=== PATIENT | female | born 1970 | race Caucasian/White ===

== ENCOUNTER 2021-08-20 19:42 | Emergency (ER) | payer OTHER ==
[~2021-08-20] VITALS: Ht 160 cm; Wt 49.9 kg
[2021-08-20 19:42] VITALS: BP_SYST 102
--- NOTE | 2021-08-20 20:00 | NUR ---
Patient to bed 8 for evaluation and treatment
--- NOTE | 2021-08-20 20:02 | NUR ---
DR GOOD IN ROOM FOR EXAM.
[2021-08-20 20:29] LABS: BASOPHILS % (AUTO) 0.4 % (0.0-2.0); EOSINOPHILS # (AUTO) 0.2 K/uL (0.0-0.4); EOSINOPHILS % (AUTO) 1.5 % (0.0-4.0); HEMOGLOBIN 12.6 g/dL (12.0-16.0); LYMPHOCYTES # (AUTO) 2.1 K/uL (1.0-5.5); LYMPHOCYTES % (AUTO) 20.1 % (20.5-51.5); MEAN CORPUSCULAR HEMOGLOBIN 31 pg (27-31); MEAN CORPUSCULAR HGB CONC 34 % (32-36); MEAN CORPUSCULAR VOLUME 91 fL (79.0-98.0); MONOCYTES # (AUTO) 0.8 K/uL (0.0-1.0); MONOCYTES % (AUTO) 7.7 % (1.7-9.3); NEUTROPHILS # (AUTO) 7.5 K/uL (1.8-7.7); NEUTROPHILS % (AUTO) 70.3 % (40.0-70.0); PLATELET COUNT (AUTO) 280 K/uL (130-430); RED BLOOD CELL COUNT(AUTO) 4.06 MIL/uL (4.2-6.2); RED CELL DISTRIBUTION WIDTH 13.4 % (9.0-15.0); WHITE BLOOD COUNT (AUTO) 10.6 K/uL (4.8-10.8)
--- NOTE | 2021-08-20 20:33 | NUR ---
PT COMES INTO ER FROM [facility] FOR MEDICAL CLEARANCE FOR FAILURE TO THRIVE. PER REPORT FROM MARIANNA BAHENA AT [facility], PT HAS A BED WAITING FOR HER AT [facility] PER LATISHA BAHENA ONCE CLEARED. STATES PT HAS STOPPED TAKING HER SEROQUEL FOR 1 WEEK, NOT EATING AND VERY WITHDRAWN. PT CURRENTLY AAOX3, IN NAD. RESP EVEN AND UNALBORED, ON RA @98%, DENIES ANY PAIN OR SOB. ABLE TO FOLLOW SIMPLE COMMANDS, BUT DISTRACTED AND NEEDS RE-ORIENTATION. SAFTEY PRECAUTIONS IN PLACE, WILL CONT TO MONITOR.
[2021-08-20 20:41] LABS: ANION GAP 7 (5-15); CALCIUM 9.4 mg/dL (8.4-11.0); CHLORIDE 99 mmol/L (98-107); CREATININE 0.89 mg/dL (0.55-1.30); GLUCOSE 78 mg/dL (70-99); POTASSIUM 3.1 mmol/L (3.5-5.1); SODIUM SERUM 138 mmol/L (136-145); UREA NITROGEN, BLOOD 33 mg/dL (8-21)
[2021-08-20 20:42] LABS: GFR AFRICAN AMERICAN 86 mL/min (>90)
--- NOTE | 2021-08-20 20:42 | NUR ---
PT DENIES ANY SI/HI, DENIES VISUAL OR AUDIAL HALLUCINATIONS.
[2021-08-20 20:47] LABS: ALANINE AMINOTRANSFERASE 34 U/L (12-78); ALBUMIN 3.8 g/dL (3.4-4.8); ASPARTATE AMINOTRANSFERASE 34 U/L (10-37); TOTAL BILIRUBIN 0.6 mg/dL (0.0-1.0)
[2021-08-20 20:49] LABS: ACETAMINOPHEN < 1 ug/mL (1-30); ALCOHOL, BLOOD < 3 mg/dL (<10)
[2021-08-20 20:50] LABS: CHOLESTEROL 185 mg/dL (<200); HDL CHOLESTEROL 52 mg/dL (>55); LDL CHOLESTEROL 115 mg/dL (<100); TRIGLYCERIDES 61 mg/dL (30-150)
[2021-08-20] MEDS ORDERED: KCL 20 mEq in 100 mL (PREMIX) 100 ML IV ONE (21:00)
[2021-08-20 21:24] LABS: BILIRUBIN,URINE NEGATIVE (NEGATIVE); COLOR,URINE YELLOW (YELLOW); GLUCOSE,URINE NEGATIVE (NEGATIVE); KETONES,URINE 1+ (NEGATIVE); LEUKOCYTE ESTERASE ,URINE TRACE (NEGATIVE); NITRITE, URINE POSITIVE (NEGATIVE); PROTEIN URINE NEGATIVE (NEGATIVE); UROBILINOGEN,URINE 0.2 (0.2-1.0)
[2021-08-20 21:27] LABS: BLOOD, URINE TRACE (NEGATIVE); CLARITY/URINE SLIGHTLY HAZY (CLEAR)
[2021-08-20 21:33] LABS: BARBITURATE, URINE NEGATIVE (NEG <=200); BENZODIAZEPINE, URINE NEGATIVE (NEG <=150); CANNABINOID, URINE NEGATIVE (NEG <=50); COCAINE, URINE NEGATIVE (NEG <=150); METHAMPHETAMINES SCREEN,URINE NEGATIVE (NEG <=500); OPIATE, URINE NEGATIVE (NEG <=100); PHENCYCLIDINE SCREEN,URINE NEGATIVE (NEG <=25); UR TRICYCLIC ANTIDEPRESSANTS POSITIVE (NEG <=300); URINE AMPHETAMINE NEGATIVE (NEG <=500); URINE METHADONE NEGATIVE (NEG <=200); URINE OXYCODONE SCREEN NEGATIVE (NEG <=100); URINE PROPOXYPHENE SCREEN NEGATIVE (NEG <=300)
[2021-08-20 21:36] LABS: BACTERIA,URINE MANY /HPF (None Seen)
[2021-08-20] MEDS ORDERED: CEPH-548 PO (21:57)
[2021-08-20] MEDS ORDERED: cefTRIAXone 1 GM in D5W 50 ML IV ONE (22:00)
--- NOTE | 2021-08-20 22:36 | NUR ---
PT WITH EYES CLOSED, IN NAD. POTASSIUM INFUSING ORDERED VIA PUMP, PT TOLERATING WELL. VSS.
[2021-08-20] MEDS ORDERED: cefTRIAXone 1 GM VIAL ONE (23:13)
--- NOTE | 2021-08-21 00:14 | NUR ---
Spoke with SHRUTI Tineo of [facility].([phone]) Notified that patient's insurance did not approve for patient's admission yet and that insurance may approve sometime overnight. Charge nurse of [facility] notified.
[2021-08-21 03:31] VITALS: BP_SYST 103
--- NOTE | 2021-08-21 03:39 | NUR ---
Report given to SHRUTI Swenson of [facility] earlier. [facility] EMS given report as well to transport patient too [facility]. EMS & SHRUTI Swenson given written and verbal discharge instructions and verbalizes understanding. ER MD discussed with patient the results and treatment provided. Patient in stable condition. ID arm band removed.IV removed with catheter tip intact. Gauze and tape placed. Pt tolerated well. Rx of Cephalexin given. Patient educated on pain management and to follow up with PMD. Opportunity for questions provided and answered.
== END 2021-08-21 03:39 ==
LOC: SED 19:42
DX: N39.0 Urinary tract infection, site not specified (principal); E87.6 Hypokalemia; Z20.822 Contact with and (suspected) exposure to COVID-19; Z79.899 Other long term (current) drug therapy
CPT/HCPCS: 36415; 80053; 80061; 80307; 81000; 83036; 85025; 87081; 87086; 87426; 93005; 96365; 96367; 99285; G0480; J0696; J3480; G0481; G0482